=== PATIENT | female | born 1945 | race African-American/Black ===

== ENCOUNTER → 2017-09-26 | Outpatient (CLI) | payer OTHER | END | disposition home or self-care (01) | LOC: NM 07:38 | PROVIDERS: ATTEND Internal Medicine Nephrology | DX: E83.52 Hypercalcemia (principal); D35.1 Benign neoplasm of parathyroid gland; M81.0 Age-related osteoporosis without current pathological fracture | CPT/HCPCS: 76536; 77080; 78070; A9500 ==

== ENCOUNTER 2020-07-15 20:54 | Emergency (ER) | payer OTHER ==
[~2020-07-15] VITALS: Ht 160 cm; Wt 61.2 kg
[2020-07-15] MEDS ORDERED: ONDANSETRON HCL 4MG/2ML INJ IV STA (21:06)
[2020-07-15] MEDS ORDERED: MORPHINE SULFATE 4 MG/ML CPJ (NOT FOR IM USE) IV STA (21:06)
[2020-07-15] MEDS ORDERED: SODIUM CHLORIDE 0.9% 1,000 ML IV ONE (21:15)
[2020-07-15 21:48] LABS: HEMATOCRIT. 32.1 % (36.0-48.0); HEMOGLOBIN. 10.7 g/dL (12.0-16.0); MEAN CORPUSCULAR HEMOGLOBIN 30.2 pg (28.0-32.0); MEAN CORPUSCULAR VOLUME 90.8 fL (81.0-99.0); MEAN PLATELET VOLUME 9.2 fl (7.4-10.4); PLATELET 213 x1000/uL (130-400); RED BLOOD CELL COUNT 3.54 mill/uL (4.2-5.4); RED CELL DISTRIBUTION WIDTH 14.4 % (11.6-14.6)
[2020-07-15 21:52] LABS: CHLORIDE 104 mEq/L (98-107)
[2020-07-15 22:16] LABS: PLATELET ESTIMATE NORMAL
[2020-07-15] MEDS ORDERED: IOHEXOL-300 100 ML BOTTLE ONE (22:59)
[2020-07-15] MEDS ORDERED: ONDANSETRON HCL 4MG/2ML INJ IV ONE (23:45)
[2020-07-16] MEDS ORDERED: ONDA4TAB5 MT (00:07)
[2020-07-16] MEDS ORDERED: POTASSIUM CHLORIDE 20MEQ TABLET SR PO ONE (00:15)
[2020-07-16 01:00] VITALS: BP 145/60
== END 2020-07-16 01:57 | disposition home or self-care (01) ==
LOC: ER 20:54
DX: R10.13 Epigastric pain (principal); R11.2 Nausea with vomiting, unspecified
CPT/HCPCS: 36415; 74177; 80053; 83690; 84484; 85025; 93005; 96361; 96374; 96375; 99285; J2270; J2405; J7030; Q9967

== ENCOUNTER 2022-04-14 20:44 | Inpatient (IN) | payer OTHER ==
[~2022-04-14] VITALS: Ht 157.5 cm; Wt 61.7 kg
[~2022-04-14 20:44] MED LIST: ONDA4TAB5 MT
[2022-04-14] MEDS ORDERED: SODIUM CHLORIDE 0.9% 1,000 ML IV ONE (21:00)
[2022-04-14] MEDS ORDERED: ASPIRIN 325MG EC TABLET PO ONE (21:15)
[2022-04-14] MEDS ORDERED: ASPIRIN 325MG EC TABLET PO NR (21:15)
[2022-04-14 21:25] LABS: HEMATOCRIT. 33.3 % (36.0-48.0); HEMOGLOBIN. 11.2 g/dL (12.0-16.0); MEAN CORPUSCULAR HEMOGLOBIN 29.8 pg (28.0-32.0); MEAN CORPUSCULAR VOLUME 89.1 fL (81.0-99.0); PLATELET 204 x1000/uL (130-400); RED BLOOD CELL COUNT 3.74 mill/uL (4.2-5.4); RED CELL DISTRIBUTION WIDTH 14.1 % (11.6-14.6)
[2022-04-14 21:32] LABS: CHLORIDE 104 mEq/L (98-107)
[2022-04-14 22:04] LABS: PLATELET ESTIMATE NORMAL
[2022-04-15 12:00] VITALS: BP 152/72
[2022-04-15 15:32] VITALS: BP 152/64
[2022-04-15 16:00] VITALS: BP 195/91
[2022-04-15] MEDS ORDERED: HYDRALAZINE 20MG/ML VIAL IV PRN (16:30)
[2022-04-15] MEDS ORDERED: ONDANSETRON HCL 4MG/2ML INJ IV PRN (16:30)
[2022-04-15] MEDS ORDERED: DIPHENHYDRAMINE 50MG/ML VIAL IV PRN (16:30)
[2022-04-15] MEDS ORDERED: ZOLPIDEM TARTRATE 5MG TABLET PO PRN (16:30)
[2022-04-15] MEDS ORDERED: CLONIDINE 0.1MG TABLET PO PRN (16:30)
[2022-04-15] MEDS ORDERED: ACETAMINOPHEN 325MG TABLET PO PRN ×2 (16:30)
[2022-04-15] MEDS: AMLODIPINE 10MG TABLET PO SCH (17:19)
[2022-04-15] MEDS: LOSARTAN POTASSIUM 100 MG TABLET PO SCH (17:19)
[2022-04-15] MEDS: SODIUM CHLORIDE 0.9% INJ 3ML FLUSH IVF SCH (18:25)
[2022-04-15] MEDS ORDERED: BUSP7.5T7 MT (18:45)
[2022-04-15] MEDS ORDERED: DILT240T12 MT (18:46)
[2022-04-15] MEDS ORDERED: CLON0.1T PO (18:50)
[2022-04-15 20:00] VITALS: BP 167/77
[2022-04-16] VITALS: BP 126/65
[2022-04-16 04:00] VITALS: BP 138/78
[2022-04-16] MEDS: SODIUM CHLORIDE 0.9% INJ 3ML FLUSH IVF SCH ×3 (05:13→21:52)
[2022-04-16 08:00] VITALS: BP 137/74
[2022-04-16] MEDS: BUSPIRONE HCL 5MG TABLET PO SCH (08:10)
[2022-04-16] MEDS: LOSARTAN POTASSIUM 100 MG TABLET PO SCH (08:10)
[2022-04-16] MEDS: AMLODIPINE 10MG TABLET PO SCH (08:10)
[2022-04-16] MEDS ORDERED: BUSPIRONE HCL 5MG TABLET PO SCH (09:00)
[2022-04-16 12:00] VITALS: BP_SYST 133; BP_SYST 142; BP_SYST 157; BP_DIAS 64; BP_DIAS 84
[2022-04-16 16:00] VITALS: BP 148/78
[2022-04-16 20:00] VITALS: BP_SYST 149; BP_SYST 152; BP_SYST 154; BP_DIAS 84; BP_DIAS 88
[2022-04-17] VITALS (7 sets, daily range): BP systolic 128–160; BP diastolic 70–86
[2022-04-17 05:54] LABS: BASOPHILS % 0.6 % (0.0-2.0); EOSINOPHILS % 0.6 % (0.0-5.0); HEMATOCRIT. 38.1 % (36.0-48.0); LYMPHOCYTES % 41.8 % (20.0-50.0); MEAN CORPUSCULAR HEMOGLOBIN 29.9 pg (28.0-32.0); MEAN CORPUSCULAR VOLUME 88.4 fL (81.0-99.0); MEAN PLATELET VOLUME 9.1 fl (7.4-10.4); MONOCYTES % 12.6 % (2.0-8.0); NEUTROPHILS % 44.4 % (40.0-76.0); PLATELET 210 x1000/uL (130-400); RED BLOOD CELL COUNT 4.31 mill/uL (4.2-5.4); RED CELL DISTRIBUTION WIDTH 14.2 % (11.6-14.6)
[2022-04-17] MEDS: SODIUM CHLORIDE 0.9% INJ 3ML FLUSH IVF SCH ×3 (06:00→21:32)
[2022-04-17 06:16] LABS: CHLORIDE 107 mEq/L (98-107)
[2022-04-17 07:29] LABS: HEMOGLOBIN. 12.9 g/dL (12.0-16.0)
[2022-04-17] MEDS: AMLODIPINE 10MG TABLET PO SCH (08:50)
[2022-04-17] MEDS: LOSARTAN POTASSIUM 100 MG TABLET PO SCH (08:50)
[2022-04-17] MEDS: BUSPIRONE HCL 5MG TABLET PO SCH (08:51)
[2022-04-17] MEDS ORDERED: REGADENOSON 0.4 MG/5 ML IV ONE (13:00)
[2022-04-17] MEDS: HYDRALAZINE HCL 25MG TABLET PO SCH ×2 (14:32→21:32)
[2022-04-17 19:25] LABS: CLARITY URINE CLEAR (CLEAR); COLOR URINE YELLOW (YELLOW); KETONES URINE NEGATIVE (NEGATIVE); LEUKOCYTE ESTERASE URINE 1+ (NEGATIVE); NITRITE URINE NEGATIVE (NEGATIVE); OCCULT BLOOD URINE NEGATIVE (NEGATIVE); PROTEIN URINE NEGATIVE (NEGATIVE); SPECIFIC GRAVITY URINE 1.017 (1.005-1.030); UROBILINOGEN URINE 0.2 E.U./dL (0.2-1.0)
[2022-04-17 19:37] LABS: *AMPHETAMINES SCREEN URINE NEGATIVE (NEGATIVE); *BARBITURATES SCREEN URINE NEGATIVE (NEGATIVE); *BENZODIAZEPINES SCREEN URINE NEGATIVE (NEGATIVE); *COCAINE SCREEN URINE NEGATIVE (NEGATIVE); CANNABINOID URINE SCREEN NEGATIVE (NEGATIVE); METHADONE URINE SCREEN NEGATIVE (NEGATIVE); OPIATES URINE SCREEN NEGATIVE (NEGATIVE); PHENCYCLIDINE URINE SCREEN NEGATIVE (NEGATIVE)
[2022-04-18] VITALS: BP 156/85
[2022-04-18 04:00] VITALS: BP 149/78
[2022-04-18 06:48] LABS: BASOPHILS % 0.4 % (0.0-2.0); EOSINOPHILS % 1.5 % (0.0-5.0); HEMATOCRIT. 37.8 % (36.0-48.0); HEMOGLOBIN. 12.7 g/dL (12.0-16.0); LYMPHOCYTES % 38.2 % (20.0-50.0); MEAN CORPUSCULAR HEMOGLOBIN 29.7 pg (28.0-32.0); MEAN CORPUSCULAR VOLUME 88.1 fL (81.0-99.0); MEAN PLATELET VOLUME 8.8 fl (7.4-10.4); MONOCYTES % 13.3 % (2.0-8.0); NEUTROPHILS % 46.6 % (40.0-76.0); PLATELET 208 x1000/uL (130-400); RED BLOOD CELL COUNT 4.29 mill/uL (4.2-5.4); RED CELL DISTRIBUTION WIDTH 13.9 % (11.6-14.6)
[2022-04-18 08:11] VITALS: BP 153/76
[2022-04-18] MEDS: AMLODIPINE 10MG TABLET PO SCH (08:58)
[2022-04-18] MEDS: LOSARTAN POTASSIUM 100 MG TABLET PO SCH (08:58)
[2022-04-18] MEDS: BUSPIRONE HCL 5MG TABLET PO SCH (08:58)
[2022-04-18 12:00] VITALS: BP 141/69
[2022-04-18 16:27] VITALS: BP 150/77
== END 2022-04-18 17:43 | disposition home or self-care (01) | DRG 73 ==
LOC: ER 20:44 → 7WST 22:42 → 7EST 04-17 22:47
PROVIDERS: ADMIT Internal Medicine; ATTEND Internal Medicine
PROC: 4A00X4Z Measurement of Central Nervous Electrical Activity, External Approach (ICD-10-PCS; principal; 2022-04-17)
DX: G90.8 Other disorders of autonomic nervous system (principal); U07.1 COVID-19; R07.89 Other chest pain; N18.9 Chronic kidney disease, unspecified; I12.9 Hypertensive chronic kidney disease with stage 1 through stage 4 chronic kidney disease, or unspecified chronic kidney disease; I35.8 Other nonrheumatic aortic valve disorders; I25.2 Old myocardial infarction; Z79.899 Other long term (current) drug therapy
CPT/HCPCS: 36415; 70551; 71045; 80048; 80053; 80305; 81003; 83036; 83735; 83880; 84443; 84484; 85025; 85379; 87426; 93005; 93306; 93880; 93970; 95816; 99285; J0360; J7030

== ENCOUNTER 2023-09-05 12:06 | Emergency (ER) | payer MEDICARE, OTHER ==
[~2023-09-05] VITALS: Ht 152.4 cm; Wt 59.0 kg
[~2023-09-05 12:06] MED LIST changes: +BUSP7.5T7 MT; +CLON0.1T PO; +DILT240T12 MT
[2023-09-05 12:13] VITALS: O2SAT 98
[2023-09-05] MEDS: MORPHINE SULFATE 4 MG/ML INJ (FOR IV/IM USE) IV STA (14:31)
[2023-09-05] MEDS: KETOROLAC 30MG/ML VIAL IV STA (14:32)
[2023-09-05] MEDS: ONDANSETRON HCL 4MG/2ML INJ IV STA (14:32)
[2023-09-05] MEDS: SODIUM CHLORIDE 0.9% 1,000 ML IV ONE (14:33)
[2023-09-05 14:38] LABS: BASOPHILS % 0.3 % (0.0-2.0); HEMATOCRIT. 38.8 % (36.0-48.0); LYMPHOCYTES % 8.9 % (20.0-50.0); MEAN CORPUSCULAR HEMOGLOBIN 29.5 pg (28.0-32.0); MEAN CORPUSCULAR HGB CONC 33.6 g/dL (31.0-37.0); MEAN CORPUSCULAR VOLUME 87.8 fL (81.0-99.0); MEAN PLATELET VOLUME 8.3 fl (7.4-10.4); MONOCYTES % 2.6 % (2.0-8.0); NEUTROPHILS % 88.2 % (40.0-76.0); PLATELET 272 x1000/uL (130-400); RED BLOOD CELL COUNT 4.42 mill/uL (4.2-5.4); RED CELL DISTRIBUTION WIDTH 15.6 % (11.6-14.6); WHITE BLOOD COUNT 10.2 x1000/uL (4.5-11.0)
[2023-09-05 14:45] LABS: CHLORIDE 106 mEq/L (98-107); POTASSIUM 4.2 mEq/L (3.5-5.1); SODIUM 137 mEq/L (136-145)
[2023-09-05 14:46] LABS: CALCIUM 10.1 mg/dL (8.7-10.4); CARBON DIOXIDE 24 mEq/L (21-32)
[2023-09-05 14:51] LABS: CREATININE 1.2 mg/dL (0.6-1.0); GLUCOSE 104 mg/dL (70-105); UREA NITROGEN BLOOD 15 mg/dL (9-23)
[2023-09-05 14:52] LABS: ALANINE AMINOTRANSFERASE 16 IU/L (10-49)
[2023-09-05 14:53] LABS: ALBUMIN 4.6 g/dL (3.2-4.8); ASPARTATE AMINOTRANSFERASE 27 IU/L (<34); BILIRUBIN TOTAL 0.9 mg/dL (0.1-1.0); PROTEIN TOTAL 8.1 g/dL (6.0-8.3)
[2023-09-05 15:07] LABS: PARTIAL THROMBOPLASTIN TIME 24.9 sec (23.4-31.0); PROTHROMBIN TIME 10.8 sec (9.6-11.0)
[2023-09-05 15:57] LABS: CLARITY URINE CLEAR (CLEAR); COLOR URINE YELLOW (YELLOW); GLUCOSE URINE NEGATIVE (NEGATIVE); KETONES URINE TRACE (NEGATIVE); LEUKOCYTE ESTERASE URINE NEGATIVE (NEGATIVE); NITRITE URINE NEGATIVE (NEGATIVE); OCCULT BLOOD URINE NEGATIVE (NEGATIVE); PROTEIN URINE NEGATIVE (NEGATIVE); SPECIFIC GRAVITY URINE 1.011 (1.005-1.030); UROBILINOGEN URINE 0.2 E.U./dL (0.2-1.0)
[2023-09-05] MEDS ORDERED: NAPR-681 MT (16:53)
[2023-09-05 17:38] VITALS: BP 158/68; PULSE 70; RESP 19; TEMP 98
== END 2023-09-05 17:50 | disposition home or self-care (01) ==
LOC: ER 12:27
DX: M25.551 Pain in right hip (principal); M54.9 Dorsalgia, unspecified; I10 Essential (primary) hypertension
CPT/HCPCS: 99285; 72131; 96374; 96361; 96375; 71045; 80053; 81003; 85025; 85610; 85730; 36415; 74176; 93005; J1885; J2405; J2270; J7030